=== PATIENT | female | born 1960 | race Two or more races ===

== ENCOUNTER 2019-04-07 21:22 | Inpatient (IN) | payer MEDICAID ==
[~2019-04-07] VITALS: Ht 180.3 cm; Wt 131.6 kg
[2019-04-07] MEDS ORDERED: NITROGLYCERIN OINT 1GM/INCH UDPKT TD ONE (21:30)
[2019-04-07] MEDS ORDERED: ASPIRIN 81MG TABLET PO ONE (21:30)
[2019-04-07] MEDS ORDERED: FUROSEMIDE 40MG/4ML VIAL IV ONE (21:30)
[2019-04-07 21:49] LABS: BASOPHILS % 0.7 % (0.0-2.0); EOSINOPHILS % 2.3 % (0.0-5.0); HEMATOCRIT. 38.5 % (36.0-48.0); HEMOGLOBIN. 13.4 g/dL (12.0-16.0); LYMPHOCYTES % 22.7 % (20.0-50.0); MEAN CORPUSCULAR HEMOGLOBIN 33.2 pg (28.0-32.0); MEAN CORPUSCULAR VOLUME 95.1 fL (81.0-99.0); MEAN PLATELET VOLUME 7.7 fl (7.4-10.4); MONOCYTES % 7.4 % (2.0-8.0); NEUTROPHILS % 66.9 % (40.0-76.0); PLATELET 262 x1000/uL (130-400); RED BLOOD CELL COUNT 4.05 mill/uL (4.2-5.4); RED CELL DISTRIBUTION WIDTH 13.1 % (11.6-14.6)
[2019-04-07 21:50] LABS: CHLORIDE 108 mEq/L (98-107)
[2019-04-07 22:02] LABS: PARTIAL THROMBOPLASTIN TIME 23.6 sec (23.4-31.0)
[2019-04-07 22:03] LABS: BG BASE EXCESS -1.1 mmol/L (-2.0-2.0); BG BILEVEL POS AIRWAY PRESSURE 15/5; BG CARBOXYHEMOGLOBIN 0.6 % (0.5-1.5); BG FRACTION INSPIRED OXYGEN 28; BG HCO3 ACT 22.9 mmol/L (22.0-26.0); BG METHEMOGLOBIN 0.2 % (0.0-1.5); BG OXYHEMOGLOBIN 97.2 % (94.0-97.0); BG PCO2 35.9 mmHg (35.0-45.0); BG PH 7.422 (7.350-7.450); BG PO2 116.8 mmHg (75.0-100.0); BG SAMPLE SITE RIGHT BRACHIAL; BG TOTAL HEMOGLOBIN 13.3 g/dL (12.0-18.0); BG VENT MODE MASK - BIPAP; BG VENT RATE 12 set
[2019-04-07] MEDS ORDERED: POTASSIUM CHLORIDE 20MEQ TABLET SR PO ONE (22:15)
[2019-04-07] MEDS ORDERED: CLONIDINE 0.2MG TABLET PO ONE (22:15)
[2019-04-08] VITALS: BP 159/83
[2019-04-08 01:45] VITALS: BP 145/80
[2019-04-08 02:00] VITALS: BP 151/94
[2019-04-08 03:52] VITALS: BP 147/90
[2019-04-08] MEDS ORDERED: ALBUTEROL (0.083%) 2.5MG/3ML NEB HHN SCH (04:00)
[2019-04-08 06:00] VITALS: BP 136/83
[2019-04-08] MEDS ORDERED: FUROSEMIDE 40MG/4ML VIAL IVP SCH (06:00)
[2019-04-08] MEDS ORDERED: ASPIRIN 325MG EC TABLET PO SCH (09:00)
[2019-04-08] MEDS ORDERED: BENAZEPRIL 10MG TABLET PO SCH (09:00)
[2019-04-08] MEDS ORDERED: CARVEDILOL 3.125 MG TABLET PO SCH (09:00)
== END 2019-04-08 08:05 | disposition left against medical advice (07) | DRG 140 ==
LOC: ER 21:22 → EDBD 21:22 → EDBEDREQ 23:37 → EDBEDREQTM 23:37 → ENRESERV 04-08 00:04 → 5EST 04-08 00:52
PROVIDERS: ADMIT Internal Medicine; ATTEND Internal Medicine
PROC: 5A09357 Assistance with Respiratory Ventilation, Less than 24 Consecutive Hours, Continuous Positive Airway Pressure (ICD-10-PCS; principal; 2019-04-08)
DX: J44.1 Chronic obstructive pulmonary disease with (acute) exacerbation (principal); J96.00 Acute respiratory failure, unspecified whether with hypoxia or hypercapnia; E87.8 Other disorders of electrolyte and fluid balance, not elsewhere classified; I11.0 Hypertensive heart disease with heart failure; I50.9 Heart failure, unspecified; Z87.891 Personal history of nicotine dependence; E87.6 Hypokalemia; Q87.40 Marfan syndrome, unspecified; R74.0 Nonspecific elevation of levels of transaminase and lactic acid dehydrogenase [LDH]
CPT/HCPCS: 36415; 36600; 71045; 82375; 82805; 83880; 84484; 93005; 94660; 96374; 99291; J1940; J7611